=== PATIENT | female | born 1950 ===

== ENCOUNTER 2019-01-14 11:10 | Day surgery (SDC) | payer MEDICARE, MEDICAID ==
[2019-01-14 11:53] VITALS: BMI 26.6
[2019-01-14] MEDS ORDERED: Lactated Ringer's 500 ML IV ONE (11:54)
[2019-01-14] MEDS ORDERED: Propofol 10 mg/ml Inj (20 ML) ONE (12:24)
[2019-01-14 12:59] VITALS: TEMP 97
[2019-01-14 13:17] VITALS: BP 128/54; PULSE 61; RESP 19; O2SAT 99
== END 2019-01-14 14:32 | disposition home or self-care (01) ==
LOC: H.ENDO 11:10
PROVIDERS: ATTEND Internal Medicine Gastroenterology
DX: Z12.11 Encounter for screening for malignant neoplasm of colon (principal); D12.0 Benign neoplasm of cecum
CPT/HCPCS: 45380; 45385; 88305; J2001; J2704; J3010; J7120